=== PATIENT | male | born 1990 | race Caucasian/White ===

== ENCOUNTER 2019-10-26 15:03 | Emergency (ER) | payer OTHER ==
[~2019-10-26] VITALS: Ht 172.7 cm; Wt 67.1 kg
[2019-10-26] MEDS ORDERED: TDAP DIPH,PERTUSS,TET VAC/PF 0.5 ML DISP.SYRIN IM ONE ×3 (15:15→15:53)
[2019-10-26] MEDS ORDERED: IBUPROFEN 600 MG TABLET ONE (16:08)
[2019-10-26] MEDS ORDERED: IBUPROFEN 600 MG TABLET PO ONE (16:15)
--- NOTE | 2019-10-26 16:15 | NUR ---
Patient discharged to home in stable conditon. Written and verbal after care instructions given. Patient verbalizes understanding of instructions.PT WAKLS IN STEADY GAIT. DENIES N/V OR DIZZINESS.
[2019-10-26 16:21] VITALS: BP 119/68
== END 2019-10-26 16:21 | disposition home or self-care (01) ==
LOC: ER 15:11
DX: S01.03XA Puncture wound without foreign body of scalp, initial encounter (principal); W26.8XXA Contact with other sharp object(s), not elsewhere classified, initial encounter; Y93.89 Activity, other specified; Y92.89 Other specified places as the place of occurrence of the external cause; Y99.8 Other external cause status
CPT/HCPCS: 70450; 90715; A4663